=== PATIENT | male | born 1975 | race Two or more races ===

== ENCOUNTER 2025-09-16 00:30 | Emergency (ER) | payer MEDICAID, SELFPAY ==
[2025-09-16 00:30] VITALS: BMI 37.0
--- NOTE | 2025-09-16 00:40 | PC.NURSE ---
I CALLED [facility] [employer] AND SPOKE WITH MONIKA. MONIKA STATED THEY WILL SEND OUT AN OFFICER TO SPEAK TO THIS PT.
[2025-09-16 00:42] VITALS: BP 167/113; PULSE 76; RESP 16; TEMP 36.8; O2SAT 95
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
[2025-09-16] MEDS: DIPHTH,PERTUSS(ACELL),TET VAC 0.5 ML SYR- ADULT IMi (01:36)
[2025-09-16] MEDS: ceFAZolin/D5W 1 GM IVPB 1 GM/50 ML BAG IV (02:57)
[2025-09-16 03:16] VITALS: BP 146/102; PULSE 78; RESP 18; TEMP 36.9; O2SAT 95
== END 2025-09-16 03:16 | disposition home or self-care (01) ==
LOC: SERX 03:34
PROVIDERS: Emergency Provider Emergency Medicine; PCP Nurse Practitioner Primary Care
DX: S61.231A Puncture wound without foreign body of left index finger without damage to nail, initial encounter (principal); I10 Essential (primary) hypertension; W34.00XA Accidental discharge from unspecified firearms or gun, initial encounter
CPT/HCPCS: 73120; 90471; 90715; 96365; 99284; J0689

== ENCOUNTER → 2025-09-24 | Outpatient (CLI) | payer MEDICAID, SELFPAY ==
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
== END | disposition home or self-care (01) ==
DX: S62.611A Displaced fracture of proximal phalanx of left index finger, initial encounter for closed fracture (principal); S62.621A Displaced fracture of middle phalanx of left index finger, initial encounter for closed fracture; X58.XXXA Exposure to other specified factors, initial encounter
CPT/HCPCS: 73110; 73130